=== PATIENT | male | born 1935 | race Caucasian/White ===

== ENCOUNTER 2022-01-09 21:25 | Inpatient (IN) | payer MEDICARE, OTHER ==
[~2022-01-09] VITALS: Ht 167.6 cm; Wt 95.3 kg
[2022-01-10] MEDS ORDERED: TAMSULOSIN HCL0.4 MG PO (00:48)
[2022-01-10] MEDS ORDERED: ELIQUIS5 MG PO (00:49)
[2022-01-10] MEDS ORDERED: AMIODARONE HCL200 MG PO (00:49)
[2022-01-10] MEDS ORDERED: VITAMIN D21250 MCG PO (00:50)
[2022-01-10] MEDS ORDERED: FUROSEMIDE20 MG PO (00:50)
[2022-01-10] MEDS ORDERED: B-121000 MCG PO (00:51)
[2022-01-10] MEDS ORDERED: TRESIBA FL100 UNIT/1 SQ (00:53)
[2022-01-10] MEDS ORDERED: ISOSORBIDE MONO60 MG PO (00:53)
[2022-01-10] MEDS ORDERED: NAMENDA5 MG PO (00:54)
[2022-01-10] MEDS ORDERED: LEVOTHYROXINE75 MCG PO (00:54)
[2022-01-10] MEDS ORDERED: DITROPAN XL 5 MG5 MG PO (00:55)
[2022-01-10] MEDS ORDERED: LINZESS72 MCG PO (00:56)
[2022-01-10] MEDS ORDERED: TRAMADOL HCL50 MG PO (00:56)
[2022-01-10 02:14] LABS: HEMOGLOBIN 8.5 gm/dl (14.0-17.5); RED BLOOD COUNT 3.15 M/UL (4.20-5.50); WHITE BLOOD COUNT 9.7 K/UL (4.5-11.0)
--- NOTE | 2022-01-10 02:56 | NUR ---
NOTIFIED DR ABARCA OF [facility] TROPONIN LEVELS AND EKG.
[2022-01-11 05:12] LABS: HEMOGLOBIN 8.5 gm/dl (14.0-17.5); RED BLOOD COUNT 3.1 M/UL (4.20-5.50); WHITE BLOOD COUNT 9.3 K/UL (4.5-11.0)
[2022-01-12 01:56] LABS: HEMOGLOBIN 8.8 gm/dl (14.0-17.5); RED BLOOD COUNT 3.22 M/UL (4.20-5.50); WHITE BLOOD COUNT 8.3 K/UL (4.5-11.0)
== END 2022-01-12 10:20 | disposition expired ==
LOC: PROG CARE 23:33
PROVIDERS: Emergency Medicine; Internal Medicine; Internal Medicine Cardiovascular Disease; ADMIT Internal Medicine
PROC: B24BZZZ Ultrasonography of Heart with Aorta (ICD-10-PCS; principal; 2022-01-10)
DX: I21.4 Non-ST elevation (NSTEMI) myocardial infarction (principal); J18.9 Pneumonia, unspecified organism; I50.43 Acute on chronic combined systolic (congestive) and diastolic (congestive) heart failure; J96.21 Acute and chronic respiratory failure with hypoxia; I48.20 Chronic atrial fibrillation, unspecified; N17.9 Acute kidney failure, unspecified; I13.0 Hypertensive heart and chronic kidney disease with heart failure and stage 1 through stage 4 chronic kidney disease, or unspecified chronic kidney disease; D63.1 Anemia in chronic kidney disease; I25.5 Ischemic cardiomyopathy; E11.22 Type 2 diabetes mellitus with diabetic chronic kidney disease; I25.10 Atherosclerotic heart disease of native coronary artery without angina pectoris; G20 Parkinson's disease; E03.9 Hypothyroidism, unspecified; N18.30 Chronic kidney disease, stage 3 unspecified; Z66 Do not resuscitate; R00.1 Bradycardia, unspecified; Z95.2 Presence of prosthetic heart valve; Z95.1 Presence of aortocoronary bypass graft; Z85.46 Personal history of malignant neoplasm of prostate; Z86.16 Personal history of COVID-19; Z79.01 Long term (current) use of anticoagulants; Z99.81 Dependence on supplemental oxygen; Z83.3 Family history of diabetes mellitus; Z82.49 Family history of ischemic heart disease and other diseases of the circulatory system; Z79.82 Long term (current) use of aspirin; Z90.49 Acquired absence of other specified parts of digestive tract; Z88.0 Allergy status to penicillin; Z88.1 Allergy status to other antibiotic agents; Z88.6 Allergy status to analgesic agent; Z88.8 Allergy status to other drugs, medicaments and biological substances
CPT/HCPCS: ECHO; 36415; 71045; 80048; 80053; 81001; 82436; 82550; 82553; 82570; 82962; 83735; 83880; 84100; 84133; 84156; 84300; 84439; 84443; 84484; 84550; 85025; 85027; 85610; 85730; 86140; 87040; 93005; 93306; 94640; 94664; 94760; J0696; J1644; J1940; J2270